=== PATIENT | female | born 1990 | race Caucasian/White ===

== ENCOUNTER 2017-01-30 17:57 | Emergency (ER) | payer OTHER ==
[2017-01-30] MEDS ORDERED: IOPAMIDOL 370 (76%) 100 ML VIAL IV ONE (17:58)
[2017-01-30 18:19] LABS: SPECIFIC GRAVITY 1.015 (1.001-1.030); URINE BILIRUBIN NEGATIVE (NEGATIVE); URINE BLOOD TRACE (NEGATIVE); URINE GLUCOSE (UA) NEGATIVE (NEGATIVE); URINE LEUKOCYTE ESTERASE TRACE (NEGATIVE); URINE NITRITE NEGATIVE (NEGATIVE); URINE PROTEIN 1+ (NEGATIVE); URINE UROBILINOGEN NORMAL (0-1 mg/dl)
[2017-01-30 18:20] LABS: URINE APPEARANCE SL CLOUDY; URINE COLOR AMBER
[2017-01-30 18:21] LABS: HCG,QUALITATIVE URINE NEGATIVE
[2017-01-30 18:39] LABS: URINE BACTERIA 2+
[2017-01-30] MEDS ORDERED: SODIUM CHLORIDE 0.9% 2,000 ML ONE (19:13)
[2017-01-30] MEDS ORDERED: LIDOCAINE 5% PATCH ONE (19:14)
[2017-01-30 19:28] LABS: ABSOLUTE NEUTROPHIL COUNT 6.9 K/mm3 (1.8-7.7); BASO % 0.4 % (0.2-1.0); EOS # 0.1 (0.0-0.5); EOS % 0.7 % (0.9-2.9); HEMATOCRIT 43.7 % (37.0-47.0); HEMOGLOBIN 14.6 gm/l (12.0-16.0); IMM NEUT% 0.2 % (0-1); LYMPH # 1.8 (1.0-4.8); LYMPH % 18.8 % (15-45); MEAN CORPUSCULAR HEMOGLOBIN 32.1 pg (27.0-31.0); MEAN CORPUSCULAR HGB CONC 33.4 g/dl (33.0-37.0); MEAN PLATELET VOLUME 11.2 fl (7.4-10.4); MONO # 0.8 (0.0-0.8); MONO % 8.5 % (4-12); NEUT % 71.4 % (43-75); PLATELET COUNT 236 K/mm3 (130-400); RED CELL DISTRIBUTION WIDTH 12.2 % (11.5-14.5)
[2017-01-30 19:46] LABS: ALB/GLOB RATIO 1.4 (>1.0); ALBUMIN 4.2 gm/dL (3.5-5.7); CALCIUM 9.3 mg/dL (8.6-10.3); MAGNESIUM 1.8 mg/dL (1.9-2.7)
--- NOTE | 2017-01-30 20:30 | CT ---
Exam Type: ABD/PELVIS W/ CON Date and Time: 01/30/2017 6:53 PM Clinical information: Right flank pain. Comparison: None Procedure: Imaging device: [employer] Aquilion [address] scanner 1 mm axial images were obtained through the abdomen and pelvis. Stacked reconstructed 3, 4 and 5 mm images were photographed in the axial coronal and sagittal planes. No oral contrast was utilized for this examination. 100 ml of Isovue-370 was injected intravenously. Exam: with intravenous contrast. FINDINGS: Lung bases:The visualized lung bases appear to be appropriate with no mass, effusion or consolidation visualized. Liver: the liver is homogeneous with no discrete abnormality visualized. No definite findings of biliary dilatation are observed. Spleen: The spleen is homogeneous and does not appear to be enlarged. Gallbladder: Surgically absent. Pancreas: Normal without enlargement or evidence of adjacent inflammatory changes. Adrenal glands: Normal without enlargement or evidence of adjacent inflammatory changes. Abdominal aorta: The aorta is of normal caliber and appears to be without significant atherosclerotic disease. Kidneys: The kidneys appear to be symmetric in size with no perinephric inflammatory changes are identified. No current findings of hydronephrosis are seen. Bowel structures: The visualized bowel is of normal caliber without evidence of dilatation or obstruction. No free fluid or mesenteric inflammatory changes are identified. There is note made of a moderately distended debris-filled stomach. Appendix: The appendix is well-visualized and appears to be of normal caliber. No periappendiceal inflammatory changes or CT findings of appendicitis are currently observed. Bladder: The bladder is of normal contour. No wall thickening or significant distention is observed. Hernia: No abdominal wall or inguinal hernia is visualized on this examination. Adenopathy: No significant enlarged adenopathy is visualized. Osseous structures: No discrete osseous abnormalities are identified. Pelvic structures: No discrete pelvic abnormalities are visualized in this examination. IMPRESSION: 1. A normal appearance of the appendix without current CT evidence of appendicitis. 2. Prior cholecystectomy. 3. A moderately distended debris-filled stomach.
[2017-01-30 21:10] LABS: AMPHETAMINES/METHAMPHETAMINES NEGATIVE (NEGATIVE); COCAINE NEGATIVE (NEGATIVE); MARIJUANA NEGATIVE (NEGATIVE); METHADONE NEGATIVE (NEGATIVE); OPIATES NEGATIVE (NEGATIVE); TRICYCLIC ANTIDEPRESSANTS NEGATIVE (NEGATIVE)
== END 2017-01-30 21:21 | disposition home or self-care (01) ==
LOC: ED 17:57
DX: R10.9 Unspecified abdominal pain (principal); R00.0 Tachycardia, unspecified